=== PATIENT | female | born 1990 ===

== ENCOUNTER → 2020-10-10 | Outpatient (CLI) | payer BC | LOC: COL.RAD 06:57 | DX: M51.27 Other intervertebral disc displacement, lumbosacral region (principal); S32.000A Wedge compression fracture of unspecified lumbar vertebra, initial encounter for closed fracture ==

== ENCOUNTER 2023-09-23 09:24 | Day surgery (SDC) | payer BC ==
[2023-09-23] VITALS (7 sets, daily range): BP systolic 101–118; BP diastolic 61–73; PULSE 60–72; TEMP 98.2
[~2023-09-23] VITALS: Ht 172.7 cm; Wt 63.6 kg
[2023-09-23] MEDS ORDERED: NORCO 325 MG-51 TAB PO (12:48)
[2023-09-23] MEDS ORDERED: CEPHALEXIN500 M1 PO (12:48)
--- NOTE | 2023-09-23 13:15 | NUR ---
PATIENT RETURNS TO ROOM 2 PER CART ACCOMPANIED BY LEONCIO POWELL AND IS AWAKE AND ALERT. IVF INFUSING AND SITE IF CLEAR. SIDERAILS UP X2. FOOT OF CART ELEVATED AND ICE ON THE LEFT ANKLE. FOOT WARM TO TOUCH AND NAIL BEDS PINK. NOEMI WRAP DRESSING CLEAN AND DRY ON THE LEFT ANKLE. SPOUSE IN ROOM. DRINKING WATER AND EATING APPLESAUCE. CALL LIGHT IN REACH.
--- NOTE | 2023-09-23 13:30 | NUR ---
TOLERATED WATER AND APPLESAUCE. FOOT OF CART REMAINS ELEVATED. ICE ON THE LEFT ANKLE.
--- NOTE | 2023-09-23 13:45 | NUR ---
STATES IS BEGINNING TO HAVE INCISIONAL SORENESS ON THE LEFT ANKLE. RATES DISCOMFORT 3/10. TOES REMAIN PINK AND WARM TO TOUCH. NOEMI WRAP DRESSING CLEAN AND DRY.
--- NOTE | 2023-09-23 13:52 | NUR ---
OXYCODONE 5MG ONE TAB GIVEN FOR PAIN. WILL CONTINUE TO MONITOR.
--- NOTE | 2023-09-23 14:00 | NUR ---
RESTING WITH FOOT OF CART ELEVATED AND ICE BAG IN PLACE.
--- NOTE | 2023-09-23 14:15 | NUR ---
RESTING AND STATES THAT THE PAIN PILL WAS EFFECTIVE. LEFT FOOT WARM TO TOUCH AND NAIL BEDS PINK.
--- NOTE | 2023-09-23 14:23 | NUR ---
IV OUT AND SITE IS FREE OF REDNESS OR SWELLING. ASSISTED TO SITTING ON THE EDGE OF THE CART. DENIES INCREASING PAIN OR NAUSEA.
--- NOTE | 2023-09-23 14:30 | NUR ---
DISMISSAL INSTRUCTIONS GIVEN AND PATIENT AND SPOUSE BOTH VERBALIZE UNDERSTANDING.
--- NOTE | 2023-09-23 14:43 | NUR ---
PATIENT DISMISSED TO HOME PER PRIVATE VEHICLE AND ESCORTED TO CAR IN WHEELCHAIR AND DISMISSED TO HOME WITH INSTRUCTIONS IN HAND.
== END 2023-09-23 14:43 | disposition home or self-care (01) ==
LOC: SDCO 09:24
DX: T84.84XA Pain due to internal orthopedic prosthetic devices, implants and grafts, initial encounter (principal)
CPT/HCPCS: J0690; J1100; J1580; J2250; J2405; J2704; J2795; J3010; J7120